=== PATIENT | male | born 1955 | race Caucasian/White ===

== ENCOUNTER 2019-10-03 12:01 | Outpatient (CLI) | payer MEDICARE, SELFPAY ==
--- NOTE | 2019-10-03 12:07 | XR_ITS ---
WS: [id number] CHEST 2 VIEWS HISTORY: Cough COMPARISON: None available. Lungs: Lung findings are decreased. Diffuse interstitial edema and mild pulmonary congestion. Small b ilateral pleural effusions, RIGHT greater than LEFT. Cardiac size: Mildly enlarged cardiac silhouette. Mediastinum/Aorta: Normal mediastinum. Bones: Normal. XR/XR chest 2V* [id number] IMPRESSION: CHF with cardiomegaly and small bilateral pleural effusions.
[2019-10-03 13:45] LABS: Basophils % 0.3 %; Eosinophils # 0.1 10^3/uL (0.0-0.8); Eosinophils % 0.7 %; Hemoglobin 13.9 g/dL (11.7-16.6); Lymphocytes # 1.5 10^3/uL (0.8-4.8); Lymphocytes % 15.3 %; Mean Corpuscular HGB Conc 30.9 g/dL (30.0-36.0); Mean Corpuscular Hemoglobin 27.6 pg (28.0-34.0); Mean Corpuscular Volume 89.5 fL (80-94); Mean Platelet Volume 10.5 fL (7.4-10.4); Monocytes # 0.8 10^3/uL (0.2-0.9); Monocytes % 8.1 %; Neutrophils # 7.5 10^3/uL (1.8-7.7); Neutrophils % 75.1 %; Nucleated Red Blood Cells % 0 %; Platelet Count 288 10^3/cmm (130-400); Red Blood Count 5.03 10^6/uL (4.1-5.3); Red Cell Distribution Width 14.6 % (12.1-15.1)
[2019-10-03 14:25] LABS: Alanine Aminotransferase 63 U/L (0-41); Albumin Level 4.1 g/dL (3.5-5.2); Alkaline Phosphatase 62 IU/L (40-130); Anion Gap 16.9 (5-19); Aspartate Amino Transferase 30 U/L (0-40); Blood Urea Nitrogen 9 mg/dL (8-23); Calcium 9.3 mg/dL (8.5-10.5); Carbon Dioxide 24 mmol/L (22-29); Chloride 103 mmol/L (98-107); Glucose 110 mg/dL (65-115); Osmolality Calculated 287 mOsm/kg (285-295); Potassium 3.9 mmol/L (3.5-5.1); Sodium 140 mmol/L (136-145); Total Bilirubin 0.9 mg/dL (0.15-1.2); Total Protein 7.1 g/dL (6.6-8.7)
[2019-10-04 14:41] LABS: Immunoglobulin E 12 kU/L (<OR=114)
== END 2019-10-03 12:02 | disposition home or self-care (01) ==
LOC: RAD 12:07
PROVIDERS: PCP Nurse Practitioner; Visit Provider Internal Medicine Critical Care Medicine
DX: R05 Cough (principal); I51.7 Cardiomegaly; J90 Pleural effusion, not elsewhere classified; I50.9 Heart failure, unspecified
CPT/HCPCS: 36415; 71046; 80053; 82785; 85025

== ENCOUNTER 2019-10-13 14:19 | Outpatient (CLI) | payer MEDICARE, SELFPAY ==
--- NOTE | 2019-10-13 14:15 | USCV_ITS ---
Juan F Cazares Age: 64 Gender: M : 1955 Exam Date: 10/13/2019 14:29 Ordering Phys: Chang Pate MD Technologist: Iron Figueroa Exam Location: [facility] Indication: CHF, ? LV FUNCTION BP: 135 / 80 HR: 56 Rhythm: Sinus Technical Quality: Fair MEASUREMENTS (Male / Female) Normal Values 2D ECHO LV Diastolic Diameter PLAX 6.3 cm 4.2 - 5.9 / 3.9 - 5.3 cm LV Systolic Diameter PLAX 5.5 cm IVS Diastolic Thickness 1.1 cm 0.6 - 1.0 / 0.6 - 0.9 cm IVS Systolic Thickness 1.4 cm LVPW Diastolic Thickness 1.1 cm 0.6 - 1.0 / 0.6 - 0.9 cm LVPW Systolic Thickness 1.1 cm LVOT Diameter 2.0 cm LV Ejection Fraction 2D Teich 27.3 % LV Ejection Fraction MOD 2C 48.5 % LV Ejection Fraction 2C AL 47.5 % LA Diameter 4.3 cm LA Width 4.4 cm LA Height 4.9 cm RA Width 3.5 cm RA Height 4.8 cm Aorta at Sinotubular Diameter 2.6 cm M-MODE LV Diastolic Diameter MM 7.1 cm 4.2 - 5.9 / 3.9 - 5.3 cm LV Systolic Diameter MM 6.1 cm LV Ejection Fraction MM Teich 29.1 % IVS Diastolic Thickness MM 1.2 cm 0.6 - 1.0 / 0.6 - 0.9 cm IVS Systolic Thickness MM 1.1 cm LVPW Diastolic Thickness MM 1.1 cm 0.6 - 1.0 / 0.6 - 0.9 cm LVPW Systolic Thickness MM 1.3 cm RV Diastolic Diameter MM 1.5 cm Aortic Annulus Diameter 3.1 cm LA Ao Ratio MM 1.4 MV E Point Septal Separation 2.2 cm DOPPLER AV Peak Velocity 119.0 cm/s LVOT Peak Velocity 78.0 cm/s AV Area Cont Eq vti 1.9 cm squared AV Area Cont Eq pk 2.2 cm squared MV Area PHT 5.0 cm squared Mitral E to A Ratio 2.4 MV E' Velocity 5.0 cm/s Mitral E to MV E' Ratio 25.1 Mitral E to LV E' Lateral Ratio 21.9 Mitral E to LV E' Septal Ratio 30.1 TR Peak Velocity 140.0 cm/s TR Peak Gradient 7.8 mmHg TV Peak E Velocity 74.0 cm/s Right Atrial Pressure 3.0 mmHg Pulmonary Artery Systolic Pressu 10.8 mmHg FINDINGS Left Ventricle Markedly dilated left ventricular cavity size. Severely decreased left ventricular systolic function. Left ventricular ejection fraction is estimated at 15-20 %. Global left ventricular hypokinesis. Abnormal diastolic function. Right Ventricle Normal right ventricular size and systolic function. Right ventricular systolic pressure 10.8 mmHg. Right Atrium Normal right atrial size. Right atrial pressure estimated at 8 mmHg. Left Atrium Mildly increased left atrial size. Mitral Valve Mildly thickened mitral valve. Mild to moderate mitral valve regurgitation. Aortic Valve Structurally normal trileaflet aortic valve. No aortic valve stenosis. No aortic valve regurgitation. Tricuspid Valve Structurally normal tricuspid valve. Trace tricuspid valve regurgitation. Pulmonic Valve Pulmonic valve not well visualized. Trace pulmonary valve regurgitation. Pericardium No pericardial effusion. Aorta Aorta not well visualized. CONCLUSIONS 1. This is a technically difficult study. 2. Markedly dilated left ventricular cavity size. Severely decreased left ventricular systolic function. Left ventricular ejection fraction is estimated at 15-20 %. Global left ventricular hypokinesis. Abnormal diastolic function. 3. Normal right ventricular size and systolic function. 4. Right atrial pressure estimated at 8 mmHg. 5. Mild to moderate mitral valve regurgitation. 6. No prior similar studies to compare. Gayla Snow MD (Electronically Signed) Final Date: 14 Oct 2019 14:43 S
== END 2019-10-13 14:20 | disposition home or self-care (01) ==
LOC: RAD 14:22
PROVIDERS: PCP Nurse Practitioner; Visit Provider Internal Medicine Critical Care Medicine
DX: R06.02 Shortness of breath (principal); I50.9 Heart failure, unspecified; I34.0 Nonrheumatic mitral (valve) insufficiency
CPT/HCPCS: 93306

== ENCOUNTER → 2019-11-02 09:16 | Outpatient (BNVA) | payer MEDICARE, SELFPAY | PROVIDERS: PCP Nurse Practitioner; Visit Provider Internal Medicine Cardiovascular Disease | DX: R06.02 Shortness of breath (principal); I50.9 Heart failure, unspecified; I34.0 Nonrheumatic mitral (valve) insufficiency; R00.0 Tachycardia, unspecified; K59.00 Constipation, unspecified | CPT/HCPCS: 80048; 83735; 83880 ==

== ENCOUNTER → 2019-11-23 16:03 | Outpatient (BNVA) | payer MEDICARE, SELFPAY | PROVIDERS: PCP Nurse Practitioner; Visit Provider Internal Medicine Cardiovascular Disease | DX: I34.0 Nonrheumatic mitral (valve) insufficiency (principal); R06.02 Shortness of breath; I50.9 Heart failure, unspecified; R00.0 Tachycardia, unspecified; K59.00 Constipation, unspecified | CPT/HCPCS: 80048; 83735; 83880 ==

== ENCOUNTER 2019-11-28 06:57 | Outpatient (CLI) | payer MEDICARE, SELFPAY ==
--- NOTE | 2019-11-28 07:12 | ECG_ITS ---
[facility] Test Date: 2019-11-28 Pat Name: Juan F Cazares Department: Room: Gender: Male Mount [place]er: : 1955 Requested By: Gayla Snow Order Number: [id number] Brice MD: Gayla Snow M.D. Interpretive Statements NAME OF STUDY: LEXISCAN SESTAMIBI STRESS TEST INDICATION: Shortness of Breath PROCEDURE: At the baseline, the blood pressure was 97/70 mmHg with a heart rate of 97 bpm. The electrocardiogram showed sinus tachycardia, normal axis with nonspecific T wave changes in lead II,III,aVF and V6. The Lexiscan was infused over a period of 20 seconds. A total of 0.4 milligrams of Lexiscan was infused. The stress phase was continued for a total of 5 minutes. Heart rate at the end of the stress phase was 101 bpm with a blood pressure 96/65 mmHg. The EKG at the peak infusion revealed sinus tachycardia with no significant changes. Study was stopped due to protocol completion. Sestamibi was injected 20 seconds after the Lexiscan infusion. Blood pressure at the end of the recovery phase was 92/64 mmHg with a heart rate of 101 beats per minute. CONCLUSION: 1. No significant EKG changes with the LexiScan infusion. 2. No LexiScan induced chest pain or cardiac arrhythmia. 3. Normal blood pressure and heart rate response. 4. Sestamibi/sestamibi perfusion scan pending; see separate report. Electronically Signed On 11-30-2019 17:28:57 CDT by Gayla Snow M.D. [id number]
--- NOTE | 2019-11-28 07:13 | NMCV_ITS ---
NM melvin perf SPECT r/s* [id number] Juan F Cazares Age: 64 Gender: M : 1955 Exam Date: 11/28/2019 07:57 Ordering Phys: Gayla Snow MD ([email or web address]) Technologist: REFUGIO Meyer Exam Location: [facility] Indications: SOB STRESS TEST [facility] IMAGE PROTOCOL Rest/Stress 1 Lexiscan Day Radiopharmaceutical Dose (mCi) Administration Site Administered by Rest: Tc-99m 10.9 IV REFUGIO Meyer Sestamibi Stress:Tc-99m 32.1 IV REFUGIO Meyer Sestamibi Rest: 28-Nov-2019 60 Discovery 630 Stress: 28-Nov-2019 45 Discovery 630 0.4mg Lexiscan. Images obtained in supine and prone position. SPECT RESULTS Technical Quality: Good Raw Data Analysis: Normal Image Corrections: No attenuation or motion correction applied Summed Stress Score: 5 Summed Rest Score: 2 Summed Difference Score: 3 PERFUSION FINDINGS Small size perfusion abnormality of mild severity of mid to apical inferior and apical lateral wall on rest images with reversibility noted in mid to apical inferior and apical lateral agrawal on stress images. FUNCTIONAL RESULTS (calculated via Gated SPECT) Stress Image LV EF (%): 10 Stress EDV (mL):248 TID: 1.12 Stress ESV (mL):223 FUNCTIONAL FINDINGS: The left ventricle is dilated. Transient Ischemia Dilatation of 1.1. There is severely decreased left ventricular systolic function. The left ventricular ejection fraction is severely reduced with a value of 10%. Severe global hypokinesis more pronounced in inferior wall. Markedly increased end-diastolic and end-systolic volumes. IMPRESSIONS 1. Small sized reversible perfusion abnormality of mild severity of mid to apical inferior and apical lateral agrawal. 2. This is suggestive of small area of ischemia in right coronary artery/circumflex artery territory. 3. There is severely decreased left ventricular systolic function with ejection fraction of 10%. 4. Scan indicates low to moderate risk for cardiac events. 5. No prior similar studies to compare. Gayla Snow MD (Electronically Signed) Final Date: 30 November 2019 16:17 S
[2019-11-28 07:15] VITALS: BMI 27.2
[2019-11-28] MEDS: regadenoson 0.4 Mg/5 ml Syringe IVP (08:38)
[2019-11-28 08:58] VITALS: BP 96/63; PULSE 98
== END 2019-11-28 06:58 | disposition home or self-care (01) ==
PROVIDERS: Family Provider Nurse Practitioner; PCP Nurse Practitioner; Visit Provider Internal Medicine Cardiovascular Disease
DX: I50.9 Heart failure, unspecified (principal); R06.02 Shortness of breath
CPT/HCPCS: 78452; 93017; A9500; J2785

== ENCOUNTER → 2019-12-15 09:03 | Outpatient (BNVA) | payer MEDICARE, SELFPAY | PROVIDERS: Family Provider Nurse Practitioner; PCP Nurse Practitioner; Visit Provider Internal Medicine Cardiovascular Disease | DX: R94.39 Abnormal result of other cardiovascular function study (principal); I50.9 Heart failure, unspecified; I34.0 Nonrheumatic mitral (valve) insufficiency; R06.02 Shortness of breath; R00.0 Tachycardia, unspecified; K59.00 Constipation, unspecified | CPT/HCPCS: 80048; 85025; 87635 ==

== ENCOUNTER 2019-12-19 12:06 | Observation (INO) | payer MEDICARE, SELFPAY ==
[2019-12-16 13:46] VITALS: BMI 27.9
[2019-12-19] VITALS (21 sets, daily range): BP systolic 91–117; BP diastolic 64–84; PULSE 94–108; RESP 7–32; TEMP 36.5–37.1; O2SAT 87–100
--- NOTE | 2019-12-19 07:30 | XACV_ITS ---
Ht: 178 cm Wt: 88 kg BSA: 2.11 m2 Gender: Male : 1955 Exam Priority: Routine Procedure(s): Procedure Description: Diagnostic procedure Procedure Description: Coronary Angiography Diagnostic Cath Status: Elective Diagnostic Findings No significant disease noted in the Left Main, LAD, Circumflex, or RCA coronary arteries. Coronary angiography shows right dominance. PCI Status: Elective Conclusions No significant disease noted in the Left Main, LAD, Circumflex, or RCA coronary arteries. Indication for left heart cath: Left ventricular dysfunction, cardiomyopathy, abnormal stress test. Recommendations Continue current medical management and risk factor modification. Pressures Phase:Rest AO : 114 mmHg / 84 mmHg ( 95 mmHg ) @ 6:26:00 AM 101 mmHg / 91 mmHg ( 95 mmHg ) @ 6:27:00 AM Clinical Evaluation EBL: 5mL-10mL Procedural Details Procedure Consent Obtained. Pre-Procedure Time Out. Identified patient by full name and date of as verbalized by the patient/guarantor. Does the consent match the physician's order: Yes. Accurate & Complete Informed Consent: Yes. Inpatient/Outpatient History & Physical on Chart: Yes. If H&P is completed, is and addenduem needed: Yes; If yes, is the addendum complete: N/A. Visualize and Verify Site with Patient/Guarantor: N/A. Relevant Radiology Images available: N/A. The risks, benefits, and alternatives of sedation and/or procedure were discussed by physician. The patient agrees to continue. Procedure started. [facility] Clinical Fraility Score: 3: Managing Well. Digital Archivist Indications: Cardiac Arrhythmia. Digital Archivist Indications: Other. Chest Pain Symptom Assessment: Typical Angina Symptoms. Correct patient, site and procedure confirmed by cath team. Current diagnosis: Chest Pain. PERRLA. Strong, equal hand behavioral pediatrician bilaterally. Lungs clear x 5 lobes. IV Site on Arrival: 20 gauge in the right anticubital. IV Fluids: 0.9% NaCl at KVO. 0 mL infused prior to general production laborer. Pre Procedural Pulses: bilateral dorsalis pedis was Doppled. Pre Procedural Pulses: bilateral posterior tibial was Doppled. Pre Procedural Pulses: bilateral radial was 3+. Oxygen started at 2liters/min via nasal canula. bilateral groins was prepped with chloroprep then draped in the usual sterile fashion. right radial was prepped with chloroprep then draped in the usual sterile fashion. Baseline sample Acquired. HR: 106 BPM. Physician notified. Patient's family unavailable. Equipment: 6F - Radial. Physician arrived. Physician scrubbed in. Immediate Pre-Procedure Time Out. Correct Patient: Yes; Correct Procedure: Yes; Correct Site: Yes; Correct Patient Position: Yes; Correct Supplies: Yes; Dried Flammable Prep: Yes; Blood Products Available: N/A;. Lidocaine 1% infiltrated to the right radial. Arterial access obtained. A 5 serbian TIG catheter in over wire. Catheter inserted over the exchange wire. Multiple views taken of left coronary artery. Catheter redirected to the RCA. Multiple views taken of right coronary artery. catheter out. TR band placed. Hemostasis obtained. Estimated blood loss: 5mL-10mL. Contrast type used: Visipaque 320 mgI/mL, 500 mL bottle. [id number]. PERRLA. Strong, equal hand behavioral pediatrician bilaterally. No VTE prophylaxis required. Medication's Wasted: Lidocaine 1% = 16 mL. Medication's Wasted: Nitro = 49.8 mg. Medication's Wasted: Heparin = 1000 mL. Total IV fluids: 75 mL. Fluoro: 1:08. Procedure completed. Patient transferred by wheelchair to 1st floor. Site: Right Radial artery Sheath Size: 6 Fr Hemostasis Success: Unsuccessful Procedure Medications Start: 11:14 AM Stop: 11:14 AM Medication: Versed Amount: 1 mg Route: I.V. Start: 11:14 AM Stop: 11:14 AM Medication: Fentanyl Amount: 50 mcg Route: I.V. Start: 11:21 AM Stop: : AM Medication: Nitrogylcerin Amount: 200 mcg Route: I.A. Start: 11:21 AM Stop: : AM Medication: Versed Amount: 1 mg Route: I.V. Start: 11: AM Stop: : AM Medication: Fentanyl Amount: 50 mcg Route: I.V. Start: 11:23 AM Stop: : AM Medication: Heparin Amount: 5000 units Route: I.V. I, the attending physician, have reviewed and verified all procedure medications. Yes, all medications given per verbal order History/Risk Factors Hypertension: Yes Dyslipidemia: Yes Peripheral Arterial Disease (PAD): No Myocardial Infarction (AR): Yes Obesity: No Renal Disease: No Tobacco Use: Never Prior Interventions PCI: No CABG: No Valve Surgery: No Report Signatures Finalized by:Stanley Darden MD on 01/01/2020 6:05:51 PM
[2019-12-19] MEDS: diphenhydrAMINE 50 mg Capsule PO (08:32)
--- NOTE | 2019-12-19 11:36 | W.PM.OPSUD ---
Surgery/Procedure H&P Update DATE OF PROCEDURE: December 19, 2019 DATE H&P PERFORMED: 11/23/19 H&P UPDATE INFORMATION: I have reviewed H&P completed within last 30 days, I have examined patient prior to procedure and No changes to prior documentation PLANNED PROCEDURE: Operation Date: 12/19/19 08:30 Proposed Procedures p Cardiac Catheterization left(Left) - Stanley Darden MD PATIENT REASSESSED PRIOR TO SEDATION, WITH NO CHANGE NOTED: Yes PHYSICAL EXAM: alert, oriented x 3 and clear to auscultation bilaterally AIRWAY EVAL/ANESTHESIA PLAN: ASA II
--- NOTE | 2019-12-19 12:15 | PC.NURSE ---
Patient arrived to unit at 1150. Patient has TR band in place to right wrist with 16 mL of air. Nail beds dusky, cap refill <3 seconds. IV patent and intact to right AC. Trace edema present to bilateral lower extremities. Lung sounds clear to auscultation. Bowel sounds active in all four quadrants.
--- NOTE | 2019-12-19 14:45 | PC.NURSE ---
TR band off per protocol at 1445. Clear dressing in place. No bleeding or hematoma noted. Patient verbalizes understanding of restrictions and instructions of care.
[2019-12-19] MEDS: fluticasone nasal spray 16gm Btl 1 SPRAY INTRANASAL (17:20)
[2019-12-19] MEDS: FUROsemide 40 mg Tablet PO (17:20)
[2019-12-19] MEDS: carvedilol 3.125 mg Tablet PO (17:20)
--- NOTE | 2019-12-19 18:16 | PC.NURSE ---
patient states I am allergic to chicken turkey and fish. It makes me sick at my stomach.
--- NOTE | 2019-12-19 18:56 | PC.NURSE ---
Discussed IV fluids order with Dr Darden New instructions to stop IV fluids.
--- NOTE | 2019-12-19 19:12 | PC.NURSE ---
Patient does not have any complaints at this time. Dressing to right wrist is c/d/i. No oozing or hematoma. Patient has been educated on post-cath care and activity restrictions and verbalized understanding. Patient has call light within reach. Will continue to monitor.
[2019-12-20 00:28] VITALS: BP 92/59; PULSE 97; RESP 26; TEMP 36.6; O2SAT 96
[2019-12-20 03:46] VITALS: BP 92/64; PULSE 98; RESP 22; TEMP 36.7; O2SAT 96
--- NOTE | 2019-12-20 06:56 | PC.NURSE ---
Post-cath site to right wrist still WNL. Patient does not have any complaints at this time. Will monitor.
[2019-12-20 07:42] VITALS: BP 102/61; PULSE 95; RESP 25; TEMP 36.7; O2SAT 95
--- NOTE | 2019-12-20 08:21 | PM.SDS ---
Short Stay Summary Providers Date of Admit/Discharge: 12/20/19 Attending Provider: Stanley Darden MD Primary Care Provider: DANTE Allen Chief Complaint: left heart cath HPI History of Present Illness Juan F Cazares is a 64 year old male Home Meds/Allergies Home Medications and Allergies Home Medications Medication Instructions Recorded Confirmed Type sennosides 8.6 mg-docusate sodium 2 tab-cap PO DAILY PRN tab 10/03/19 12/16/19 History 50 mg tablet pravastatin 10 mg tablet 10 mg PO DAILY 10/19/19 12/19/19 History Allergies Allergy/AdvReac Type Severity Reaction Status Date / Time chicken derived Allergy ADR-Nausea Verified 12/19/19 18:16 fish derived Allergy ADR-Nausea Verified 12/19/19 18:16 turkey Allergy ADR-Nausea Verified 12/19/19 18:16 PFSH Acute PFSH: Medical History Constipation Tachycardia Family History Other Stroke Social History Smoking and tobacco status: never smoked Alcohol intake: former Lives independently: Yes Household members: family Marital status: Single Current occupational status: employed 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 NECK: No jugular vein distension. HEENT: No cyanosis. No icterus. No pallor. HEART: Regular S1 and S2. No murmur, rub or gallop. LUNGS: Clear to auscultate bilaterally. ABDOMEN: Soft, nontender and nondistended. Positive bowel sounds. No guarding, rebound or tenderness. CENTRAL NERVOUS SYSTEM: Grossly nonfocal. EXTREMITIES: Lower extremities without edema bilaterally. Pulses palpable in the lower extremities, both dorsalis pedis and posterior tibial. Hospital Course Hospital Course: 64-year-old male patient of Dr. Snow referred to us for left heart cath due to LV dysfunction, worsening of shortness of breath and abnormal stress test. Patient has history of cardiomyopathy. Yesterday patient underwent left heart cath which showed normal coronaries. Patient was discharged last night but due to not coming out of sedation he was not felt to be released. Patient did not have any truck driver flatbed to come and pick him up. It is the reason patient was observed overnight. This morning he is doing fine from being alert and oriented x3. He can drive by himself. He does not have any overnight event. He is being discharged home. We will continue the same medicine. SSS Data Data Completed and Pending: Pending at discharge Category Date Time Status FURNACE HAND request for service Routin e Exams 12/19/19 07:30 Taken Discharge Plan Discharge Condition: Stable Prescriptions: Continued sennosides-docusate sodium [Lax Stool Softener With Senna] 8.6-50 mg tablet 2 tab-cap PO DAILY PRN (Reason: constipation) RF: 0 fluticasone propionate [Flonase Allergy Relief] 50 mcg/actuation spray,suspension 1 spray INTRANASAL BID 90 Days Qty: 18.2 RF: 3 carvedilol [Coreg] 3.125 mg tablet 3.125 mg PO BID Qty: 60 RF: 3 spironolactone 50 mg tablet 50 mg PO DAILY Qty: 30 RF: 3 pravastatin 10 mg tablet 10 mg PO DAILY RF: 0 potassium chloride 20 mEq tablet extended release 20 meq PO DAILY Qty: 30 RF: 2 furosemide 40 mg tablet 40 mg PO BID Qty: 60 RF: 2 lactulose 10 gram/15 mL solution 15 ml PO DAILY PRN (Reason: constipation) Qty: 237 RF: 0 Discharge Orders: Discharge Order (Routine); Ordered 12/20/19 Ordered By: Stanley Darden Discharge Diet: Cardiac and Low Salt Patient Instructions: Left Heart Catheterization (DC) Activity Restrictions/Additional Instructions: No lifting with right hand for next 24 hours. Follow-up with Dr. Snow within 4-week Attestations Medical Necessity Statement*: Patient is outpatient in bed. Postprocedure patient took too long to come out of conscious sedation since he was going to drive himself and nobody can pick him up we observe him overnight. Time Spent in Patient Care*: less than 30 min Quality Metrics Clinical Quality Measures: During this hospital stay, did patient experience: None Coding Level of Care Code Established Pt Acute Produce Department Manager for Chg Fwd Patient Type Established History Expanded Problem Focused Exam Expanded Problem Focused Medical Decision Making Moderate Complexity
[2019-12-20] MEDS: fluticasone nasal spray 16gm Btl 1 SPRAY INTRANASAL (09:01)
[2019-12-20] MEDS: potassium chloride ER 10 mEq Tablet 20 MEQ PO (09:01)
[2019-12-20] MEDS: carvedilol 3.125 mg Tablet PO (09:02)
[2019-12-20] MEDS: spironolactone 25 mg Tablet 50 MG PO (09:02)
[2019-12-20] MEDS: FUROsemide 40 mg Tablet PO (09:02)
[2019-12-20 09:28] VITALS: BP 102/61; PULSE 95; RESP 25; TEMP 36.7; O2SAT 95
--- NOTE | 2019-12-20 09:57 | PC.NURSE ---
Patient left floor at 0956 with all patient belongings and discharge instructions in hand. Patient was educated and informed on all restrictions and discharge instructions of post procedure. IV removed.
== END 2019-12-20 09:56 | disposition home or self-care (01) ==
LOC: CSU 20:36
PROVIDERS: Admitting Provider Internal Medicine Cardiovascular Disease; PCP Nurse Practitioner; Visit Provider Internal Medicine Cardiovascular Disease
DX: I11.0 Hypertensive heart disease with heart failure (principal); I50.9 Heart failure, unspecified; I34.0 Nonrheumatic mitral (valve) insufficiency; R06.02 Shortness of breath; R00.0 Tachycardia, unspecified; K59.00 Constipation, unspecified; E78.5 Hyperlipidemia, unspecified; I25.2 Old myocardial infarction
CPT/HCPCS: 12345; 93454; C1769; C1887; C1894; G0378; J1644; J2250; J3010; J3490; J7030; Q0163; Q9967

== ENCOUNTER → 2019-12-27 09:38 | Outpatient (BNVA) | payer MEDICARE, SELFPAY | PROVIDERS: PCP Nurse Practitioner; Visit Provider Internal Medicine Cardiovascular Disease | DX: R06.02 Shortness of breath (principal); I50.9 Heart failure, unspecified; I34.0 Nonrheumatic mitral (valve) insufficiency; R94.5 Abnormal results of liver function studies | CPT/HCPCS: 80048; 80076 ==